=== PATIENT | female | born 1990 ===

== ENCOUNTER 2025-03-21 09:42 | Outpatient (AMB) | payer OTHER, SELFPAY ==
[2025-03-21 09:53] VITALS: BMI 62.8
--- NOTE | 2025-03-21 09:53 | A.PHYSOV_ITS ---
Vital Signs 03/21/25 09:53 Height 5 ft 11 in Weight 450 lb BMI 62.8 Intake Visit Reasons: NPV Shey Ref-back pain Intake Note: Patient is a 34 year old female coming in today for low back pain. Associate Sales Representative Required: No Allergies fluoxetine Allergy (Unknown, Verified 03/21/25 09:54) Unknown lisinopril Allergy (Unknown, Verified 03/21/25 09:54) Unknown HPI Comments Details: History of Present Illness The patient is a 34 year old individual presenting for evaluation of progressively worsening chronic low back pain. The patient describes the pain as a wringing tightness in the low back, which also involves the buttocks and is tender to the touch. The pain is exacerbated by activities such as walking long distances, side-stepping during Chandrakant, and weightlifting, specifically hip thrusts. The patient finds some relief with a heating pad and Epsom salt baths, and notes that water aerobics does not typically cause problems. The patient reports using meloxicam and methocarbamol but states they provide no significant improvement. Due to a history of a blood clot, the patient avoids ibuprofen. Past treatments include physical therapy approximately two years ago. The patient maintains an active lifestyle, exercising three times a week. A prior X- ray of the back showed some arthritis, but the patient has never had an MRI. I reviewed the referring provider's no prior to consultation. Pain Description - Onset and Character: The patient reports progressively worsening chronic pain characterized as a wringing tightness. - Location and Radiation: The pain is primarily in the lower back and radiates into the buttocks bilaterally, which are tender to the touch. The patient denies radiation down the legs. - Exacerbating Factors: Pain is worsened by prolonged walking and specific movements like side-stepping in Chandrakant and hip thrusts while weightlifting. - Relieving Factors: The patient finds relief with a heating pad, Epsom salt baths, and engaging in water aerobics. - Functional Impact: The pain limits the patient's ability to participate fully in activities like Chandrakant and weightlifting. [facility] Surgical History (Updated 03/21/25 @ 09:56 by Olga Lidia Calix MA) H/O hand surgery Social History (Updated 03/21/25 @ 09:57 by Olga Lidia Calix MA) Alcohol intake: current Alcohol intake frequency: a few times a month Patient Tobacco Use Status: Never used Tobacco Current occupational status: employed Review of Systems Narrative Review of Systems - Musculoskeletal: Reports progressively worsening chronic low back pain with a wringing tightness. Reports pain radiating to the buttocks, which are tender to the touch. - Neurological: Denies pain radiating down the legs. Physical Exam Exam Exam: Physical Exam Lumbar Spine: Examination of her lumbar spine, there is no visible swelling or deformity. She is tender to her lower lumbar facets. She is otherwise nontender. Full range of motion of the lumbar spine. She does have an increase in pain with facet loading. Special Tests: Lhermittes sign was negative Heel Toe walk is normal Left straight leg raise: Negative Right straight leg raise: Negative Special tests Adis test is negative Ganslen's test is negative SI Joint compression test negative Diego test negative Piriformis stretch is negative Lower Extremities: Full range of motion bilateral lower extremities. No calf pain or edema. Neuro: Sensation: Intact to lower extremities bilaterally Strength L2 (Psoas): 5/5 on the left and 5/5 on the right. L3 (Quads): 5/5 on the left and 5/5 on the right. L4 (Ant tibialis): 5/5 on the left and 5/5 on the right. L5 (EHL) 5/5 on the left and 5/5 on the right. S1 (Gastroc): 5/5 on the left and 5/5 on the right. DTR L4: (Patellar) Left 1 Right 1 S1: (Achilles) Left 1 Right 1 Babinski Downgoing No pathologic clonus. No involuntary movement. Vital Signs: BMI result Body Mass Index 62.8 Assessment & Plan Assessment & Plan (1) Lumbar radiculopathy: Code(s): M54.16 - Radiculopathy, lumbar region Category: Medical (2) Lumbar spondylosis: Code(s): M47.816 - Spondylosis without myelopathy or radiculopathy, lumbar region Category: Medical Plan Pain Management - Analgesia: The patient currently uses meloxicam and methocarbamol, but reports no significant improvement in symptoms. The patient avoids ibuprofen due to a history of a blood clot. - Activities of Daily Living: The patient's pain interferes with exercise, specifically limiting participation in Chandrakant and weightlifting. The patient is able to perform water aerobics without difficulty and otherwise tries to remain active. - Affect: The patient reports primarily dealing with the pain. - Adverse Effects: Not discussed. - Aberrant Drug-Related Behaviors: No aberrant behaviors were discussed or noted. Plan Patient was informed and verbally consented to the use of an ambient scribe for clinic note documentation during this visit. 1. Low Back Pain The patient's worsening chronic low back pain requires further investigation. While a prior x-ray showed some arthritis, it is insufficient for a complete diagnosis. An MRI of the lumbar spine is indicated to evaluate for disc pathology or nerve impingement. Due to insurance requirements, the patient will first complete a 5-week trial of a physician-directed home exercise program. The patient will follow up in 5 weeks, after which an MRI will be ordered. The patient is advised to continue activity modification and can continue using meloxicam and methocarbamol for symptom management. 2. Personal History Of Venous Thrombosis The patient's history of a blood clot serves as a contraindication to the use of certain NSAIDs like ibuprofen. The patient is not currently on anticoagulation. Current use of meloxicam will be continued with caution. Discussion Notes I explained to the patient that while the prior x-ray showed some arthritis, it is insufficient to fully evaluate the cause of the back pain. I recommended a lumbar MRI to get a better view of the discs and nerves but noted that insurance companies often require a period of conservative treatment first. Since the patient completed physical therapy in the past, we agreed on initiating a physician-directed home exercise program for five weeks as a formality to meet these insurance requirements. I provided the patient with exercise handouts and instructed the patient to perform them every other day. We will schedule a follow-up appointment in 6 weeks, at which point I will order the MRI. I advised the patient to continue modifying activities as needed and to continue current medications for pain. The patient understood and agreed with this plan. Patient Instructions - Perform the home exercises you were given every other day for the next 5 weeks. Do what you can, and do not push through sharp pain. - Continue to stay active but modify your activities as needed. It is okay to take breaks. Water aerobics is a good option for you. - You may continue to use your current pain medications, meloxicam and methocarbamol, as needed. - Do not take medications like ibuprofen because of your past history of a blood clot. - Please make a follow-up appointment at the front desk manager for 5 weeks from now. - We plan to order an MRI of your low back after your next visit. Coding Level of Care Code Tele New Pt Level 4 (95776) Diagnoses Lumbar radiculopathy M54.16 Lumbar spondylosis M47.816
--- OUTSIDE RECORDS SUMMARY | 2025-03-21 10:46 | XMS_ITS | Clinical Summary ---
Author Organization [facility] Address [address] [place] [address] Care Team Providers Care Cat Operator Name Role Phone Marvin Cordero MD Primary Care Provider [phone] Allergies No known active allergies Medications Medication Sig Dispensed Refills Start Date End Date Status albuterol (PROVENTIL HFA;VENTOLIN HFA) 108 (90 Base) MCG/ACT inhaler Inhale 2 puffs into the lungs daily as needed for wheezing. 0 Active losartan (COZAAR) 100 MG tablet Take 1 tablet (100 mg total) by mouth daily. 0 Active meloxicam (MOBIC) 7.5 MG tablet Take 1 tablet (7.5 mg total) by mouth daily. 0 Active aspirin 325 MG tablet Take 1 tablet (325 mg total) by mouth daily. 90 tablet 3 08/30/2023 Active Active Problems Problem Noted Date Diagnosed Date High serum vitamin B12 08/28/2022 Multiple subsegmental pulmon soo emboli without acute cor pulmonale 08/03/2019 Acute thromboembolism of deep veins of left lowe r extremity 08/03/2019 Class 3 severe obesity due t o excess calories with serious comorbidity in adult 08/03/2019 Family History Medical History Relation Name Comments Heart attack Mother Relation Name Status Comments Father Alive Mother Alive Social History Tobacco Use Types Packs/Day Years Used Date Smoking Tobacco: Never Smokeless Tobacco: Never Alcohol Use Standard Drinks/Week Comments Yes 2 (1 standard drink = 0.6 oz pur e alcohol) every other day Sex and Gender Information Value Date Recorded Sex Assigned at Not on file Gender Identity Not on file Sexual Orientation Not on file Job Start Date Occupation Industry Not on file Not on file Not on file Last Filed Vital Signs Vital Sign Reading Time Taken Comments Blood Pressure 155/86 08/30/2023 9:22 AM EDT Pulse 64 08/30/2023 9:22 AM EDT Temperature 36.5 C (97.7 F) 08/30/2023 9:22 AM EDT Respiratory Rate - - Oxygen Saturation 99% 08/30/2023 9:22 AM EDT Inhaled Oxygen Concentration - - Weight 201.4 kg (444 lb) 08/30/2023 9:22 AM EDT Height 180.3 cm (5' 11 ) 08/03/2019 9:16 AM EDT Body Mass Index 61.93 08/03/2019 9:16 AM EDT Plan of Treatment Health Maintenance Due Date Last Done Comments Hepatitis C Screening 1989 Depression Screening 2001 BMI Counseling 06/30/2007 Preventative Health Evaluation 06/30/2007 Cervical Cancer Screening (Pap Smear) 2010 COVID-19 Vaccine (2024- 6 season) 2024 03/26/2021, 06/08/2020, 05/18/2020 Influenza Vaccine (#1) 2024 01/21/2021 DTap / Tdap / Td (2 - Td or Tdap) 12/12/2025 12/13/2015 Hepatitis B Vaccines Completed 12/23/2005, 02/18/2001, 09/07/2000 Pneumococcal Vaccine Aged Out No long er eligible based on patient's age to complete this topic RSV Ped < 20 months Aged Out No longe r eligible based on patient's age to complete this topic Insurance Payer Benefit Plan / Group Subscriber ID Effective Dates Phone Address [facility] [id number] 2021-Present [address] [facility] [address] [place] [address] O Care Teams Cat Operator Relationship Specialty Start Date End Date Marvin Cordero MD PCP - General Internal Medicine 07/26/19
--- OUTSIDE RECORDS SUMMARY | 2025-03-21 10:46 | XMS_ITS | Encounter Summary ---
Author Organization [facility] Address [address] [place] [address] Care Team Providers Care Supervisor Denture Department Name Role Phone Nancy Lr MD Primary Care Prov ider Encounter Details Date Type Department Care Team (Late st Contact Info) Description 02/26/2025 Results Follow-Up Adult Medicine - [place] [address] [place] [address] Sara Guajardo PA [address] [place] [address] Social History Tobacco Use Types Packs/Day Years Used Date Smoking Tobacco: Never Smokeless Tobacco: Never Alcohol Use Standard Drinks/Week Comments Yes 2 (1 standard drink = 0.6 oz pur e alcohol) Housing Instability Answer Date Recorde d Are you worried that in the next 2 months you may not have stable housing? No 02/29/2024 Food Access & Nutrition Answer Date Rec orded Do you have access to a vari ety of food including fruits and vegetables? No 02/29/2024 Access to Healthcare Answer Date Record ed Within the last 3 months, ho w many times did you visit the emergency department for your medical care? 1 02/29/2024 Health Literacy Answer Date Recorded How often do you need to hav e someone help you when you read instructions, pamphlets, or other written material from your doctor or pharmacy? Never 02/29/2024 Caregiver: How often do you need to have someone help you when you read instructions, pamphlets, or other written material from your doctor or pharmacy? Not on file 02/29/2024 Financial Risk Answer Date Recorded How hard is it for you to pa y for the very basics like food, housing, medical care, and air conditioning / heating? Somewhat hard 02/29/2024 Transportation Answer Date Recorded Has the lack of transportati on kept you from meetings, work, or from getting things needed for daily living? No Has the lack of transportati on kept you from medical appointments or from getting medications? No 02/29/2024 Social Isolation Answer Date Recorded How often do you feel lonely or isolated from those around you? Sometimes 02/29/2024 Food Risk Answer Date Recorded Within the past 12 months we worried whether our food would run out before we got money to buy more. Sometimes true 024 Within the past 12 months th e food we bought just didn't last and we didn't have money to get more. Sometimes true 02/29/2024 Dependent Care Answer Date Recorded Do you need help finding or paying for care for your loved ones. For example, child support officer or elderly care for an older adult? No 02/29/2024 Education Answer Date Recorded Do you think completing more education or training, like finishing a GED, going to college, or learning a trade, would be helpful for you? No 02/29/2024 Employment and Income Answer Date Recor ded During the last four weeks, have you been actively looking for work? No 02/29/2024 Living Situation Answer Date Recorded What is your living situation? Unrecognized valu e 02/29/2024 Comments No Sex and Gender Information Value Date Recorded Sex Assigned at Not on file Legal Sex Female 7:26 PM EST Gender Identity Not on file Sexual Orientation Not on file documented as of this encounter Plan of Treatment Upcoming Encounters Date Type Department Care Team (Late st Contact Info) Description 04/10/2025 8:00 AM EST Consult Bariatric Surgery - [address] [place] [address] Maris Milligan, RD [address] [place] [address] 04/27/2025 8:45 AM EST Office Visit Adult Medicine - [place] [address] [place] [phone] Sara Guajardo PA [address] [place] [address] 06/22/2025 4:30 PM EST Office Visit Rheumatology - [place] [address] [place] [address] Roshan Rodriguez MD [address] [place] [address] 07/25/2025 8:15 AM EDT Office Visit Bariatric Surgery - [place] [address] [facility] [address] [place] [phone] Milli Glass PA [address] [place] [phone] documented as of this encounter Visit Diagnoses Not on filedocumented in this encounter Additional Health Concerns Assessment Noted Time PHQ-9 Depression Total Score: 11 025 6:37 AM EST documented as of this encounter Care Teams Supervisor Denture Department Relationship Specialty Start Date End Date Nancy Lr MD [address] [place] [address] PCP - General Internal Medicine 06/05/20 documented as of this encounter
--- OUTSIDE RECORDS SUMMARY | 2025-03-21 10:46 | XMS_ITS | Encounter Summary ---
Author Organization [facility] Address [address] [place] [address] Care Team Providers Care Call Person Name Role Phone Nancy Lr MD Primary Care Prov ider Encounter Details Date Type Department Care Team ([facility] Contact Info) Description 01/23/2025 Results Follow-Up Endocrinology [address] [phone] Leanna Solis MD [address] [place] [address] Social History Tobacco Use Types Packs/Day Years [...] ed Within the last 3 months, ho lucia many times did you visit the emergency [...] care for your loved ones. For example, early childhood specialist or elderly care for an older adult? [...] 8:00 AM EST Consult Bariatric Surgery - [address] [place] [address] Maris Milligan, RD [address] [place] [address] 04/27/2025 8:45 AM EST Office Visit Adult Medicine - [place] [address] [place] [phone] Sara Guajardo PA [address] [place] [address] 06/22/2025 4:30 PM EST Office Visit Rheumatology - [place] [address] [place] [address] Roshan Rodriguez MD [address] [place] [address] 07/25/2025 8:15 AM EDT Office Visit Bariatric Surgery - [place] [address] [facility] [address] [place] [phone] Milli Glass PA [address] [place] [phone] documented as of this encounter Visit Diagnoses Not on filedocumented in this encounter Additional Health Concerns Assessment Noted Time PHQ-9 Depression Total Score: 11 025 6:37 AM EST documented as of this encounter Care Teams Call Person Relationship Specialty Start Date End Date Nancy Lr MD [address] [place] [address] PCP - General Internal Medicine 06/05/20 documented as of this encounter
--- OUTSIDE RECORDS SUMMARY | 2025-03-21 10:46 | XMS_ITS | Encounter Summary ---
Author Organization [facility] Address [address] [place] [address] Care Team Providers Care Paint Line Operator Name Role Phone Nancy Lr MD Primary Care Prov ider Reason for Referral * Consultation (Routine) - Closed Specialty Diagnoses / Procedures Referred By Contact Referred To Contact Physical Medicine and Rehabilitation Diagnoses Chronic bilateral low back pain without sciatica Sara Guajardo PA [address] [place] [address] Phone: tel: fax: [facility] [address] [place] [address] [address] [place] [address] Phone: tel: fax: Referral ID Status Reason Start Date Expiration Date V isits Requested Visits Authorized [id number] Closed Specialty Services Required 02/21/2025 02/21/2026 1 1 Encounter Details Date Type Department Care Team (Late st Contact Info) Description 02/21/2025 Results Follow-Up Adult Medicine - [place] [address] [place] [address] Sara Guajardo PA [address] [place], [place] Social History Tobacco Use Types Packs/Day Years [...] for your loved ones. For example, child development teacher or elderly care for an older adult? [...] on file documented as of this encounter Progress Notes * JULIETTE Gomez - 02/21/2025 1:02 PM EST Please call patient and advise that xray of the back showed some degenerative changes but nothing acute. Given her ongoing pain I will refer her to family physiatry to have this further evaluated. Give her number [phone] documented in this encounter Plan of Treatment Upcoming Encounters Date Type Department Care Team (Late st Contact Info) Description 04/10/2025 8:00 AM EST Consult Bariatric Surgery [address] [address] Mrais Milligan, INDY [address] [place] [phone] 04/27/2025 8:45 AM EST Office Visit Adult Medicine - [place] [address] [place] [phone] Sara Guajardo PA [address] [place] [address] 06/22/2025 4:30 PM EST Office Visit Rheumatology - [place] [address] [place] [phone] Roshan Rodriguez MD [address] [place] [address] [place] [phone] 07/25/2025 8:15 AM EDT Office Visit Bariatric Surgery [address] [address] Milli Glass PA [address] [place] [address] Scheduled Referrals Name Type Priority Associated Diagnoses Order Schedule Ambulatory referral to Physical Medicine Rehab Outpatient Referral Routine Chronic bilateral low back pain without sciatica 1 Occurrences starting 02/21/2025 until 02/21/2026 documented as of this encounter Visit Diagnoses Diagnosis Chronic bilateral low back pain without sciatica- Primary documented in this encounter Additional Health Concerns Assessment Noted Time PHQ-9 Depression Total Score: 11 025 6:37 AM EST documented as of this encounter Care Teams Paint Line Operator Relationship Specialty Start Date End Date Nancy Lr MD [address] [place] [address] PCP - General Internal Medicine 06/05/20 documented as of this encounter
--- OUTSIDE RECORDS SUMMARY | 2025-03-21 10:46 | XMS_ITS ---
Author Name [facility] Organization Unknown History of Medication Use Medication Directions Dispensed Refills Start Date End Date Stat pregabalin (Lyrica) 75 mg capsule Take 1 capsule (75 mg total) by mouth 3 (three) times a day. Max Daily Amount: 225 mg 08/08/2024 active meloxicam (MOBIC) 7.5 mg tablet TAKE 1 TABLET BY MOUTH EVERY DAY 07/20/2024 active DULoxetine (Cymbalta) [address] capsule Take 1 capsule (30 mg total) by mouth 3 (three) times a day. Do not crush or chew. 06/07/2024 active pregabalin (Lyrica) 75 mg capsule Take 1 capsule (75 mg total) by mouth 1 (one) time each day after dinner for 15 days, THEN 2 capsules (150 mg total) 1 (one) time each day after dinner for 15 days, THEN 3 capsules (225 mg total) 1 (one) time each day after dinner for 15 days. Max Daily Amount: 225 mg. 06/07/2024 active tiZANidine (Zanaflex) 6 mg capsule Take 1 capsule (6 mg total) by mouth at bedtime. 06/07/2024 active semaglutide (Wegovy) 0.25 mg/0.5 mL injection pen Inject 0.25 mg under the skin every 7 (seven) days. Start with 0.25mg weekly for 4 weeks then increase to 0.5mg weekly 05/12/2024 active cyclobenzaprine (FLEXERIL) 5 mg tablet Take 2 tablets (10 mg total) by mouth at bedtime. 02/21/2024 08/15/2024 active DULoxetine (Cymbalta) [address] capsule Take 1 capsule (30 mg total) by mouth 1 (one) time each day in the morning for 10 days, THEN 1 capsule (30 mg total) 2 (two) times a day for 10 days, THEN 1 capsule (30 mg total) 3 (three) times a day. Do not crush or chew.. 02/21/2024 active CBD Oil 01/21/2024 active L-Lysine 1000mg Tablet 01/21/2024 active Losartan Potassium 100mg Tablet 01/21/2024 active Meloxicam 7.5mg Tablet 01/21/2024 active losartan (COZAAR) 100 mg tablet Take 1 tablet (100 mg total) by mouth 1 (one) time each day. 08/09/2023 active meloxicam (MOBIC) 7.5 mg tablet Take 1 Tablet by mouth daily for 360 days. 07/07/2023 active diclofenac (VOLTAREN) 1 % topical gel Apply 2 g topically 4 times daily. 05/07/2023 06/07/2024 aborted albuterol HFA (PROAIR HFA ; PROVENTIL HFA ; VENTOLIN HFA) 90 mcg/actuation inhaler Inhale 2 puffs into the lungs daily as needed for wheezing. active aspirin 325 mg tablet Take 1 tablet (325 mg total) by mouth 1 (one) time each day. active benazepriL (LOTENSIN) 10 mg tablet Take 2 tablets (20 mg total) by mouth 1 (one) time each day. active buPROPion XL (WELLBUTRIN XL) 150 mg 24 hr tablet Take 1 tablet (150 mg total) by mouth 1 (one) time each day. active FLUoxetine (PROzac) 20 mg capsule Take 1 capsule (20 mg total) by mouth 1 (one) time each day. active methocarbamoL (ROBAXIN) 750 mg tablet Take 1 tablet (750 mg total) by mouth 4 (four) times a day. active TURMERIC ORAL Take by mouth. act rashawn Allergies Allergen Reaction Severity Comment Documented Date Source Statu s FLUOXETINE OTHER Alterted mental health 10/16/2022 [facility] active LISINOPRIL Muscle cramps 05/19/2021 [facility] a ctive IBUPROFEN ENS_PODCRCT Problems Problem Status Onset Date Problem Type Date of Resolution Source Class 3 severe obesity due to excess calories with serious comorbidity in adult active 2023-06-10 ProblemAct [facility] Asthma active 2024-01-20 ProblemAct [facility] Prediabetes active 2021-11-17 ProblemAct [facility] Acute thromboembolism of deep veins of left lower extremity ([facility] V24, [facility] V28) active 2019-08-03 ProblemAct [facility] Fibromyalgia active 2024-05-12 ProblemAct [facility] DVT femoral (deep venous thrombosis) with thrombophlebitis, left ([facility] V24, [facility] V28) active 2019-06-13 ProblemAct [facility] Osteoarthritis active 2024-05-12 ProblemAct [facility] Adjustment disorder with anxious mood active 2021-05-15 ProblemAct [facility] Insomnia active 2022-12-11 ProblemAct [facility] Multiple subsegmental pulmonary emboli without acute cor pulmonale ([facility] V24, [facility] V28) active 2019-08-03 ProblemAct [facility] Morbid obesity ([facility] V24, [facility] V28) active 2016-12-01 ProblemAct [facility] High serum vitamin B12 active 2022-08-28 ProblemAct [facility] Essential hypertension active 2021-05-15 ProblemAct [facility] Snoring active 2020-09-20 ProblemAct [facility] Congenital pes planus, right foot - Flat Foot active 2024-01-21 EncounterDiagnosisAct ENS_PO DCRCT Posterior tibial tendinitis, left leg active 2024-01-21 EncounterDiagnosisAct ENS_PODCRCT Tinea pedis active 2024-01-21 ProblemAct E[facility]_PO DCRCT Equinus - Short Achilles tendon, RIGHT active 2024-01-21 EncounterDiagnosisAct ENS_PO DCRCT Posterior tibial tendinitis, right leg active 2024-01-21 ProblemAct ENS_PODCRCT Tinea unguium, onychomycosis active 2024-01-21 EncounterDiagnosisAct ENS_P ODCRCT Contracture of tendo achilles active 2024-01-21 ProblemAct ENS_PODCRCT Congenital pes planus, left foot -Flat Foot active 2024-01-21 EncounterDiagnosisAct ENS_PO DCRCT Immunizations Vaccine Date Source Lot Number Status Pneumococcal conjugate 20 va lent (Prevnar 20, PCV 20) 2mo and older [id number] comple lyle Influenza Quadravalent, MDCK , 0.5ml, preservative free (Flucelvax) 6mo and older 01/21/2021 [facility] [id number] completed Pfizer SARS-CoV-2 COVID-19, mRNA, LNP-S, preservative free 06/08/2020 [facility] [id number] completed Pfizer SARS-CoV-2 COVID-19, mRNA, LNP-S, preservative free 05/18/2020 [facility] [id number] completed Tdap Tetanus diptheria acell ular pertussis (Boostrix; Adacel) 7yo and older 12/13/2015 [facility] [id number] completed Varicella live (Varivax) 12mo and older 10/29/2008 [facility] completed Meningococcal MCV4P 03/08/2007 [facility]FR[facility]UELANGEL compl eted Hepatitis B Pediatric (Enger ix B; Recombivax HB) to less than 20 yo 12/23/2005 [facility] completed Hepatitis B Pediatric (Enger ix B; Recombivax HB) to less than 20 yo 02/18/2001 [facility] completed Hepatitis B Pediatric (Enger ix B; Recombivax HB) to less than 20 yo 09/07/2000 [facility] completed Td Tetanus diptheria (Tdvax) 7yo and older 06/23/1999 [facility]_T HSFRAN completed MMR, measles mumps and rubel la Live (Priorix; M-M-R II) 12mo and older 07/15/1994 [facility] completed MMR, measles mumps and rubel la Live (Priorix; M-M-R II) 12mo and older 10/05/1990 [facility] completed Encounters Encounter Type Encounter Reason Primary Diagnosis Location Date Ambulatory [facility] 08/08/2024 Ambulatory [facility] 06/07/2024 Ambulatory Rheumatism, unspecified Rheumatism, unspecified [facility] 02/21/2024 Ambulatory [facility] 12/02/2023 Care Team Organization Name Specialty Phone Email Start Date End Da te THoNE [facility] 02[facility]22[facility]2024 [facility] [place]/[facility]/2024 [facility] 01/21/2024 [facility] Kamla Buckner MD Primary Care 01/21/2024 [facility] 12/02/2023
--- OUTSIDE RECORDS SUMMARY | 2025-03-21 10:46 | XMS_ITS | Encounter Summary ---
Author Organization [facility] Address [address] [place] [address] Care Team Providers Care Product Consultant Name Role Phone Nancy Lr MD Primary Care Prov ider Encounter Details Date Type Department Care Team (Late st Contact Info) Description 03/20/2025 Results Follow-Up Endocrinology - [place] [address] [place] [phone] Saroj Grewal MD [address] [place] [address] Social History Tobacco Use Types Packs/Day Years [...] your loved ones. For example, child support specialist or elderly care for an older [...] as of this encounter Progress Notes * Milli Shelley - 03/20/2025 10:58 AM EST Tried calling twice today. Line busy, will try again tomorrow. * Saroj Grewal MD - 03/20/2025 8:55 AM EST Please schedule patient for a follow-up visit with me in 6 to 8 weeks Thanks documented in this encounter Plan of Treatment Upcoming Encounters Date Type Department Care Team ([facility] st Contact Info) Description 04/10/2025 8:00 AM EST Consult Bariatric Surgery - [address] [phone] Maris Milligan, INDY [address] [place] [phone] 04/27/2025 8:45 AM EST Office Visit Adult Medicine - [address] [phone] Sara Guajardo PA [address] [place] [address] 06/22/2025 4:30 PM EST Office Visit Rheumatology [facility] [address] [place] [phone] Roshan Rodriguez MD [address] [place] [address] [place] [phone] 07/25/2025 8:15 AM EDT Office Visit Bariatric Surgery - [address] [phone] Milli Glass PA [address] [place] [phone] documented as of this encounter Visit Diagnoses Not on filedocumented in this encounter Additional Health Concerns Assessment Noted Time PHQ-9 Depression Total Score: 11 025 6:37 AM EST documented as of this encounter Care Teams Product Consultant Relationship Specialty Start Date End Date Nancy Lr MD [address] [place], [place] PCP - General Internal Medicine 06/05/20 documented as of this encounter
--- OUTSIDE RECORDS SUMMARY | 2025-03-21 10:46 | XMS_ITS | Clinical Summary ---
Author Organization [employer] [facility] Building Address [address] [place] [address] Phone Care Team Providers Care Sanitarian Name Role Phone Nancy Lr MD Primary Care Prov ider Allergies Active Allergy Reactions Criticality Noted Date Comments Fluoxetine Other 10/16/2022 Alterted mental health Lisinopril 05/19/2021 Muscle cramps Medications multivitamin,th er and minerals (VITAMINS AND MINERALS ORAL) Take by mouth daily. Active TURMERIC ORAL Take by mouth. Active albuterol HFA (PROAIR HFA ; PROVENTIL HFA ; VENTOLIN HFA) 90 mcg/actuation inhaler INHALE 2 PUFFS INTO THE LUNGS EVERY 4 HOURS NEEDED FOR COUGH OR WHEEZING. 8.5 g 5 Active meloxicam (MOBIC) 7.5 mg tabletIndicatio ns:Pain in right knee TAKE 1 TABLET BY MOUTH EVERY DAY 90 tablet 5 Active methocarbamoL (ROBAXIN) 750 mg tablet Take 1 tablet (750 mg total) by mouth 2 (two) times a day. 60 each 3 5 08/07/19 26 Active losartan (COZAAR) 100 mg tablet TAKE 1 TABLET BY MOUTH 1 TIME EACH DAY. 90 tablet 1 5 Active semaglutide (Wegovy) 1.7 mg/0.75 mL injection pen Inject 1.7 mg under the skin every 7 (seven) days. 3 mL 2 5 Active semaglutide (Wegovy) 1 mg/0.5 mL injection penIndications: Class 3 severe obesity due to excess calories with serious comorbidity and body mass index (BMI) of 60.0 to 69.9 in adult ([facility] [place], [facility] V28) Inject 1 mg under the skin every 7 (seven) days. 4 mL 5 02/21/20 25 Discontinued Active Problems Problem Noted Date Diagnosed Date Osteoarthritis 05/12/2024 Fibromyalgia 05/12/2024 Asthma 01/20/2024 Class 3 severe obesity due t o excess calories with serious comorbidity in adult ([facility] V[facility]) 06/10/2023 Insomnia 12/11/2022 High serum vitamin B12 08/28/2022 Prediabetes 11/17/2021 Adjustment disorder with anxious mood 05/15/2021 Essential hypertension 05/15/2021 Snoring 09/20/2020 Overview (01/20/2024): 08/2020 Home Sleep Study did not reveal sleep apnea or nocturnal hypoxia. Acute thromboembolism of mikel p veins of left lower extremity ([facility], [facility] V28) 08/03/2019 Multiple subsegmental pulmon soo emboli without acute cor pulmonale ([facility], [facility] V28) 08/03/2019 DVT femoral (deep venous thr ombosis) with thrombophlebitis, left ([facility], [facility] V28) 06/13/2019 Morbid obesity ([facility], [facility] V28) 2016 Encounters Date Type Department Care Team Description 03/20/2025 Results Follow-Up Endocrinology - [address] [phone] Saroj Grewal MD 03/14/2025 8:55 AM EST Lab Draw Station - [address] [place] [phone] Elevation of adrenocorticotropic hormone (ACTH) 03/13/2025 Telephone Endocrinology - [address] [phone] Saroj Grewal MD 03/09/2025 7:55 AM EST Lab Draw Station - [address] [phone] High serum adrenocorticotropic hormone (ACTH) 02/26/2025 8:20 AM EST Lab Draw Station - [address] [phone] Prediabetes; Morbid obesity (CMS/HCC V24, CMS/HCC V28) 02/26/2025 Results Follow-Up Endocrinology - [address] [phone] Leanna Solis MD 02/26/2025 Results Follow-Up Adult Medicine - [address] [phone] Sara Guajardo PA 02/21/2025 Results Follow-Up Adult Medicine - [address] [phone] Sara Guajardo PA 02/20/2025 3:17 PM EST - 02/20/2025 11:59 PM EST [facility] Xray [address] [place] [phone] Chronic bilateral low back pain without sciatica Discharge Disposition: Home or Self Care 02/20/2025 2:45 PM EST Office Visit Bariatric Surgery [facility] [address] [place] [phone] Milli Glass PA Class 3 severe obesity due to excess calories with serious comorbidity and body mass index (BMI) of 60.0 to 69.9 in adult (CMS/HCC V24, CMS/HCC V28) (Primary Dx) 02/07/2025 10:30 AM EDT Office Visit Adult [facility] [address] [place] [phone] Sara Guajardo, PA Morbid obesity (CMS/HCC V24, CMS/HCC V28) (Primary Dx); Essential hypertension; Adjustment disorder with anxious mood; Fibromyalgia; Chronic bilateral low back pain without sciatica 01/24/2025 2:30 PM EDT Consult Bariatric Surgery - [place] [address] [place] [phone] Milli Glass PA Class 3 severe obesity due to excess calories with serious comorbidity and body mass index (BMI) of 60.0 to 69.9 in adult (CMS/HCC V24, CMS/HCC V28) (Primary Dx); Essential hypertension; Prediabetes 01/23/2025 8:30 AM EDT Office Visit Adult Medicine [address] [phone] Sara Guajardo PA Morbid obesity (CMS/HCC V24, [facility] V28) (Primary Dx); Prediabetes; Essential hypertension; Adjustment disorder with anxious mood; Fibromyalgia 01/23/2025 Results Follow-Up Endocrinology - [address] [phone] Leanna Solis MD 01/03/2025 2:30 PM EDT Telemedicine Endocrinology - [address] [phone] Leanna Solis MD Morbid obesity ([facility]/HCC V24, [facility] V28) (Primary Dx) from Last 3 Months Immunizations Immunization Administration Dates Next Due Hepatitis B Pediatric (Enger ix B; Recombivax HB) to less than 20 yo 12/23/2005,02/18/2001,09/07/2000 Influenza Quadravalent, MDCK , 0.5ml, preservative free (Flucelvax) 6mo and older 01/21/2021 MMR, measles mumps and rubel la Live (Priorix; M-M-R II) 12mo and older 07/15/1994,10/05/1990 Meningococcal MCV4P 03/08/2007 Pfizer SARS-CoV-2 COVID-19, mRNA, LNP-S, preservative free 06/08/2020,05/18/2020 Pneumococcal conjugate 20 va lent (Prevnar 20, PCV 20) 2mo and older 11/10/2023 Td Tetanus diptheria (Tdvax) 7yo and older 06/22 Tdap Tetanus diptheria acell ular pertussis (Boostrix; Adacel) 7yo and older 12/13/2015 Varicella live (Varivax) 12mo and older 10/30/19 09 Surgical History Surgery Date Site/Laterality Comments HAND SURGERY PROCEDURE: HISTORICAL HAND SURGERY; COMMENT: left hand; 4 years old, pnemonia post-op OTHER SURGICAL HISTORY 06/03/2020 Right PROCEDURE: SKIN TISSUE BIOPSY [facility] PATHOLOGY EXAM; COMMENT: excision of right buttock sebaceous cyst by Dr. Emeterio Falcon Medical History Medical History Date Comments Asthma DX:Asthma Depression with anxiety DX:Depre ssion with anxiety PTSD (post-traumatic stress disorder) DX:PTSD (post-traumatic stress disorder); COMMENT: boarderline personality disorder Morbid obesity (CMS/HCC V24, CMS/HCC V28) DX:Morbid obesity (HCC) Family History Medical History Relation Name Comments Hypertension Father Stroke Maternal Grandmother Heart attack Mother pacemaker, quit tobacco, HTN, depression Other: skin cancer Paternal Grandmother d eceased Depression Sister 1 Breast cancer Neg Hx Colon cancer Neg Hx Ovarian cancer Neg Hx Prostate cancer Neg Hx Uterine cancer Neg Hx Relation Name Status Comments Brother 1 Alive 20; healthy Brother 2 Alive 34; healthy Father Alive hypertension Maternal Grandfather unknown Maternal Grandmother Alive stroke Mother Alive [facility] in 2012; hyp ertension Paternal Grandfather unknown Paternal Grandmother of skin cancer Sister 1 Sister 2 Alive 27; alcoholism Social History Tobacco Use Types Packs/Day Years Used Date Smoking Tobacco: Never Smokeless Tobacco: Never Tobacco Cessation:Counseling Given: No Alcohol Use Standard Drinks/Week Comments Yes 2 [...] Record ed Within the last 3 months, dav myers many times did you visit the emergency [...] care for your loved ones. For example, children's service worker or elderly care for an older adult? [...] on file Sexual Orientation Not on file Obstetrics History Last Filed Vital Signs Vital Sign Reading Time Taken Comments Blood Pressure 155/110 02/20/2025 2:43 PM EST Pulse 79 02/20/2025 2:43 PM EST Temperature 36.5 C (97.7 F) 02/07/2025 10:40 AM EDT Respiratory Rate 18 01/23/2025 8:13 AM EDT Oxygen Saturation 98% 06/07/2024 3:24 PM EST Inhaled Oxygen Concentration - - Weight 224 kg (494 lb) 02/20/2025 2:43 PM EST Height 185.4 cm (6' 1 ) 02/20/2025 2:43 PM EST Body Mass Index 65.18 02/20/2025 2:43 PM EST Plan of Treatment Upcoming Encounters Date Type Department Care Team (Late st Contact Info) Description 04/10/2025 8:00 AM EST Consult Bariatric Surgery - [place] [address] [phone] Maris Milligan, RD [address] [place] [phone] 04/27/2025 8:45 AM EST Office Visit Adult Medicine - [place] [address] [place] [phone] Sara Guajardo PA [address] [place] [address] 06/22/2025 4:30 PM EST Office Visit Rheumatology - [place] [address] [place] [phone] Roshan Rodriguez MD [address] [place] [address] [place] [phone] 07/25/2025 8:15 AM EDT Office Visit Bariatric Surgery - [place] [address] [phone] Milli Glass PA [address] [place] [phone] Health Maintenance Due Date Last Done Comments HPV Vaccines (1 - 3-dose SCDM series) 2016 Cervical Cancer Screening: Pap Smear 07/17/2023 07/16/2020 Social Influencers of Health Screening 02/28/2025 02/29/2024 DTaP,Tdap,and Td Vaccines (3 - Td or Tdap) 12/12/2025 12/13/2015, 06/23/1999 Hypertension/CHF/CAD Annual BMP Blood Test 02/26/2026 02/26/2025, 08/11/2024, 02/03/2024, Additional history exists Cholesterol Screening (Lipid Panel) 08/11/2029 08/11/2024, 11/14/2021 RSV Immunization Adult Patients (1 - 1-dose 75+ series) 2064 MMR Vaccines Completed 07/15/1994, 10/05/1990 Hepatitis B Vaccines Completed 12/23/2005, 02/18/2001, 09/07/2000 Meningococcal ACWY Vaccine Completed 03/08/2007 Varicella Vaccines Aged Out 10/29/2008 No longer eligible based on patient's age to complete this topic HIV Screening Completed 07/16/2020 Hepatitis C Screening Completed 07/16/2020 Influenza Vaccine Discontinued 01/21/2021 COVID-19 Vaccine Discontinued 03/26/2021, , 05/18/2020 Pneumococcal Vaccine: Pediatrics (0 to 5 Years) and At-Risk Patients (6 to 49 Years) Completed 11/10/2023 Depression Screening Completed 05/12/2024 HIB Vaccines Aged Out No longer eligi ble based on patient's age to complete this topic Hepatitis A Vaccines Aged Out No long er eligible based on patient's age to complete this topic IPV Vaccines Aged Out No longer eligi ble based on patient's age to complete this topic Meningococcal B Vaccine Aged Out No l onger eligible based on patient's age to complete this topic RSV Immunization Patients Under 20 months Aged Out No longer eligible based on patient's age to complete this topic Procedures Procedure Name Priority Date/Time Associated Diagnosis Comments DEHYDROEPIANDROSTERONE SULFATE Routine 03/14/2025 9:25 AM EST Elevation of adrenocorticotropic hormone (ACTH) CORTISOL Routine 03/14/2025 9:25 AM EST Elevation of adrenocorticotropic hormone (ACTH) ACTH Routine 03/14/2025 9:25 AM EST Elevation of adrenocorticotropic hormone (ACTH) ESTRADIOL Routine 03/14/2025 9:25 AM EST Elevation of adrenocorticotropic hormone (ACTH) FOLLICLE STIMULATING HORMONE Routine 03/14/2025 9:25 AM EST Elevation of adrenocorticotropic hormone (ACTH) LUTEINIZING HORMONE Routine 03/14/2025 9:25 AM EST Elevation of adrenocorticotropic hormone (ACTH) INSULIN-LIKE GROWTH FACTOR Routine 03/14 9:25 AM EST Elevation of adrenocorticotropic hormone (ACTH) PROLACTIN Routine 03/14/2025 9:25 AM EST Elevation of adrenocorticotropic hormone (ACTH) CORTISOL Routine 03/09/2025 8:02 AM EST High serum adrenocorticotropic hormone (ACTH) ACTH Routine 03/09/2025 8:02 AM EST High serum adrenocorticotropic hormone (ACTH) CORTISOL Routine 02/26/2025 8:20 AM EST Morbid obesity (CMS/HCC V24, CMS/HCC V28) ACTH Routine 02/26/2025 8:20 AM EST Morbid obesity (CMS/HCC V24, CMS/HCC V28) COMPREHENSIVE METABOLIC PANEL Routine 02/26/2025 8:20 AM EST Morbid obesity (CMS/HCC V24, CMS/HCC V28) HEMOGLOBIN A1C Routine 02/26/2025 8:20 AM EST Prediabetes XR LUMBAR SPINE 4+ VIEWS Routine 025 3:34 PM EST Chronic bilateral low back pain without sciatica THYROXINE FREE Routine 01/16/2025 8:55 AM EDT Morbid obesity (CMS/HCC V24, CMS/HCC V28) THYROID STIMULATING HORMONE Routine 01/16/2025 8:55 AM EDT Morbid obesity (CMS/HCC V24, CMS/HCC V28) CORTISOL Routine 01/16/2025 8:55 AM EDT Morbid obesity (CMS/HCC V24, CMS/HCC V28) FOLLICLE STIMULATING HORMONE Routine 01/16/2025 8:55 AM EDT Morbid obesity (CMS/HCC V24, CMS/HCC V28) LUTEINIZING HORMONE Routine 01/16/2025 8:55 AM EDT Morbid obesity (CMS/HCC V24, CMS/HCC V28) LIPID PANEL WITH REFLEX TO DIRECT LDL Routine 08/11/2024 9:14 AM EDT Screening for ischemic heart disease HEPATITIS C SCREENING Routine 07/16/2020 HIV SCREENING Routine 07/16/2020 PAP SMEAR Routine 07/16/2020 from Last 3 Months or Most Recently Relevant to Health Maintenance Results * Prolactin (03/14/2025 9:25 AM EST) Pathologist [facility] Prolactin 29.50 See Comment ng/mL 03/14/2025 1:[address] [facility] Blood Venous blood specimen / Unknown Venipuncture / Unknown 03/14/2025 9:25 AM EST 03/14/2025 12:[address] [facility] - 03/14/2025 1:56 PM EST Prolactin Female Reference Ranges (ng/mL): Non: 2.8 - 29.2 : 9.7 - >200.0 Postmenopausal: 1.8 - 20.3 us Saroj Grewal MD LAB BLOOD ORDERABLES Final Result [facility] [address] [place] [address], * Insulin-like growth factor (03/14/2025 9:25 AM EST) Insulin-like Growth Factor 1 139 84 - 281 ng/mL 03/19/2025 11:50 AM EST [facility] Comment: Test performed at [facility], [address] , [place] [address] Silvana Bajwa MD, PhD - Steam Pan Sponger Blood Venous blood specimen / Unknown Venipuncture / Unknown 03/14/2025 9:25 AM EST 03/14/2025 10:42 AM EST Saroj Grewal MD LAB BLOOD ORDERABLES Final Result [facility] [address] [place] [address] * (ABNORMAL) Dehydroepiandrosterone Sulfate (03/14/2025 9:25 AM EST) DHEA Sulfate 36.4(L) 40.2 - 300.6 mcg/dL 03/14/2025 1:[address] [facility] Blood Venous blood specimen / Unknown Venipuncture / Unknown 03/14/2025 9:25 AM EST 03/14/2025 12:15 PM EST Saroj Grewal MD LAB BLOOD ORDERABLES Final Result [facility] [address] [place] [address], * Estradiol (03/14/2025 9:25 AM EST) Estradiol 49 See below pcg/mL 03/14/2025 1:[address] [facility] Blood Venous blood specimen / Unknown Venipuncture / Unknown 03/14/2025 9:25 AM EST 03/14/2025 12:[address] [facility] - 03/14/2025 1:56 PM EST Estradiol Female Reference Ranges (pg/mL): Menstruating: Follicular phase: 19.5 - 144.2 Mid-cycle phase: 63.9 - 356.7 Luteal phase: 55.8 - 214.2 Post menopausal: Untreated: ND - 32.2 Fulvestrant has been shown to cross-react with the estradiol assay and cause falsely elevated results. For patients being treated with fulvestrant, Estradiol ultrasensitive should be ordered. This test is performed by LC/MS and is not expected to show cross reactivity to fulvestrant. Saroj Grewal MD LAB BLOOD ORDERABLES Final Result Performing Organization Address City/[facility] Co de Phone Number [facility] [address] [place] [address], * (ABNORMAL) ACTH (03/14/2025 9:25 AM EST) Only the most recent of3 resultswithin the time period is included. Adrenocorticotropic Hormone (ACTH) 47(H) <=46 pg/mL 03/19/2025 8:05 PM EST [facility] Comment: Test performed at [facility], [address] , [place] [address] Silvana Bajwa MD, PhD - Steam Pan Sponger Blood Venous blood specimen / Unknown Venipuncture / Unknown 03/14/2025 9:25 AM EST 03/14/2025 10:43 AM EST Saroj Grewal MD LAB BLOOD ORDERABLES Final Result [facility] [address] [place] [address] * Luteinizing hormone (03/14/2025 9:25 AM EST) Only the most recent of2 resultswithin the time period is included. Luteinizing Hormone 4.7 See Comment mIU/mL 03/14/2025 1:[address] [facility] Blood Venous blood specimen / Unknown Venipuncture / Unknown 03/14/2025 9:25 AM EST 03/14/2025 12:15 PM EST [facility] - 03/14/2025 1:56 PM EST LH Female Reference Ranges (mIU/mL): Menstruating: Follicular phase: 1.9 - 12.5 Mid-cycle phase: 8.7 - 76.3 Luteal phase 0.5 - 16.9 Post-menopausal: 5.0 - 55.2 : < 0.1 - 1.5 Saroj Grewal MD LAB BLOOD ORDERABLES Final Result [facility] [address] [place] [address], [place] [phone] * Follicle stimulating hormone (03/14/2025 9:25 AM EST) Only the most recent of2 resultswithin the time period is included. Follicle Stimulating Hormone 7.7 See Comment mIU/mL 03/14/2025 1:[address] [facility] Blood Venous blood specimen / Unknown Venipuncture / Unknown 03/14/2025 9:25 AM EST 03/14/2025 12:15 PM EST [facility] - 03/14/2025 1:54 PM EST [facility] Female Reference Ranges (mIU/mL): Menstruating: Follicular phase: 2.5 - 10.2 Mid-cycle phase: 3.4 - 33.4 Luteal phase: 1.5 - 9.1 Post-menopausal: 23.0 - 116.3 : < 0.3 Saroj Grewal MD LAB BLOOD ORDERABLES Final Result [facility] [address] [place] [address], [place] [phone] * Cortisol (03/14/2025 9:25 AM EST) Only the most recent of4 resultswithin the time period is included. Cortisol 12.5 mcg/dL 03/14/2025 12:[address] [facility] Blood Venous blood specimen / Unknown Venipuncture / Unknown 03/14/2025 9:25 AM EST 03/14/2025 12:[address] [facility] - 03/14/2025 12:15 PM EST CORTISOL REFERENCE RANGE 8 AM SPEC: 5.0-23.0 mcg/dL 4 PM SPEC: 3.0-16.0 mcg/dL 8 PM SPEC: <5.0 mcg/dL us Saroj Grewal MD LAB BLOOD ORDERABLES Final Result [facility] [address] [place] [address], [place] [phone] * Hemoglobin A1c (02/26/2025 8:20 AM EST) [facility] Hemoglobin A1C 5.6 <6.5 % LAB CHEMISTRY METHOD 02/26/2025 11:[address] [facility] Mean Bld Glu Estim. 114 mg/dL LAB CHEMISTRY METHOD 02/26/2025 11:[address] [facility] Blood Venous blood specimen / Unknown Venipuncture / Unknown 02/26/2025 8:20 AM EST 02/26/2025 8:33 AM EST us Sara SEGOVIA LAB BLOOD ORDERABLES Final Result [facility] [address] [place] [address], [place] [phone] * Comprehensive metabolic panel (02/26/2025 8:20 AM EST) [facility] Sodium 140 133 - 145 mmol/L LAB CHEMISTRY METHOD 02/26/2025 9:[address] [facility] Potassium 4.2 3.5 - 5.5 mmol/L LAB CHEMISTRY METHOD 02/26/2025 9:18 AM [facility] Chloride 107 96 - 110 mmol/L LAB CHEMISTRY METHOD 02/26/2025 9:18 AM [facility] CO2 26 21 - 32 mmol/L LAB CHEMISTRY METHOD 02/26/2025 9:18 AM [facility] Anion Gap 7 3 - 11 LAB CHEMISTRY METHOD 02/26/2025 9:18 AM [facility] Glucose 93 70 - 100 mg/dL LAB CHEMISTRY METHOD 02/26/2025 9:18 AM [facility] BUN 12 5 - 25 mg/dL LAB CHEMISTRY METHOD 02/26/2025 9:18 AM [facility] Creatinine 0.84 0.50 - 1.10 mg/dL LAB CHEMISTRY METHOD 02/26/2025 9:18 AM [facility] eGFR 93 >=60 mL/min/1. 73m2 LAB CHEMISTRY METHOD 02/26/2025 9:18 AM [facility] Comment:Calculation based on the Chronic Kidney Disease Epidemiology Collaboration (CKD-EPI) equation refit without adjustment for race. BUN/Creatinine Ratio 14.3 LAB CHEMISTRY METHOD 02/26/2025 9:18 AM [facility] Calcium 8.6 8.5 - 10.5 mg/dL LAB CHEMISTRY METHOD 02/26/2025 9:18 AM [facility] AST (SGOT) 20 10 - 42 unit/L LAB CHEMISTRY METHOD 02/26/2025 9:18 AM [facility] ALT (SGPT) 26 10 - 60 unit/L LAB CHEMISTRY METHOD 02/26/2025 9:18 AM [facility] Alkaline Phosphatase 101 42 - 121 unit/L LAB CHEMISTRY METHOD 02/26/2025 9:18 AM [facility] Total Protein 6.9 6.0 - 8.0 g/dL LAB CHEMISTRY METHOD 02/26/2025 9:[address] [facility] Albumin 3.2 3.2 - 5.0 g/dL LAB CHEMISTRY METHOD 02/26/2025 9:[address] [facility] Total Bilirubin 0.2 0.0 - 1.4 mg/dL LAB CHEMISTRY METHOD 02/26/2025 9:[address] [facility] Blood Venous blood specimen / Unknown Venipuncture / Unknown 02/26/2025 8:20 AM EST 02/26/2025 8:33 AM EST us Sara SEGOVIA LAB BLOOD ORDERABLES Final Result [facility]) [facility] [address] [place] [address], [place] [phone] * XR Lumbar Spine 4+ Views (02/20/2025 3:34 PM EST) Anatomical Region Laterality Modality Spine, L-spine Radiographic Adamaris ging 02/21/2025 12:1 2 PM EST Impressions 02/21/2025 12:16 PM EST Suspect a transitional vertebra. There is degenerative change involving the facets at the lumbosacral junction. -------- FINAL REPORT -------- Dictated By: Paul Singh Dictated Date: 02/21/2025 12:12 ET Assigned Physician: Paul Singh Reviewed and Electronically Signed By: Paul Singh Signed Date: 02/21/2025 12:16 ET Workstation ID: [id number] Transcribed By: Self Edit Transcribed Date: 02/21/2025 12:12 ET Narrative 02/21/2025 12:16 PM EST EXAMINATION: LUMBAR SPINE CLINICAL INFORMATION: Low back pain COMPARISON: None. TECHNIQUE: 3 views lumbar spine FINDINGS: There is a transitional vertebra. The lowest disc may be S1/S2. No acute fracture or subluxation. No significant volume loss or definite focal abnormality. There is facet disease at the lumbosacral junction. No significant volume loss or definite focal abnormality. There is facet disease at the lumbosacral junction. There may be minimal narrowing of the lowest disc. No suspicious paraspinal abnormality Procedure Note Paul Singh MD - 02/21/2025 EXAMINATION: LUMBAR SPINE CLINICAL INFORMATION: Low back pain COMPARISON: None. TECHNIQUE: 3 views lumbar spine FINDINGS: There is a transitional vertebra. The lowest disc may be S1/S2. No acute fracture or subluxation. No significant volume loss or definite focal abnormality. There is facetdisease at the lumbosacral junction. No significant volume loss or definite focal abnormality. There is facetdisease at the lumbosacral junction. There may be minimal narrowing of the lowest disc. No suspicious paraspinal abnormality IMPRESSION: Suspect a transitional vertebra. There is degenerative change involvingthe facets at the lumbosacral junction. -------- FINAL REPORT -------- Dictated By: Paul Singh Dictated Date: 02/21/2025 12:12 ET Assigned Physician: Paul Singh Reviewed and Electronically Signed By: Paul Singh Signed Date: 02/21/2025 12:16 ET Workstation ID: [id number] Transcribed By: Self Edit Transcribed Date: 02/21/2025 12:12 ET Sara SEGOVIA IMG XR PROCEDURES Final Re sult * Thyroid stimulating hormone (01/16/2025 8:55 AM EDT) TSH 1.53 0.40 - 4.00 mcIU/mL LAB CHEMISTRY METHOD 01/16/2025 2:[address] [facility] Blood Venous blood specimen / Unknown Venipuncture / Unknown 01/16/2025 8:55 AM EDT 01/16/2025 8:55 AM EDT Leanna Solis MD LAB BLOOD ORDERABLES Final Resul t [facility] [address] [place] [address], [place] [phone] * Thyroxine free (01/16/2025 8:55 AM EDT) Free T4 1.10 0.70 - 1.80 ng/dL LAB CHEMISTRY METHOD 01/16/2025 1:[address] [facility] Blood Venous blood specimen / Unknown Venipuncture / Unknown 01/16/2025 8:55 AM EDT 01/16/2025 8:55 AM EDT us Leanna Solis MD LAB BLOOD ORDERABLES Final Resul t [facility] [address] [place] [address], [place] [phone] * (ABNORMAL) Lipid panel with reflex to direct LDL (08/11/2024 9:14 AM EDT) Cholesterol 178 0 - 200 mg/dL LAB CHEMISTRY METHOD 08/11/2024 1:[address] [facility] Triglycerides 93 0 - 150 mg/dL LAB CHEMISTRY METHOD 08/11/2024 1:22 PM [facility] HDL 49 >=40 mg/dL LAB CHEMISTRY METHOD 08/11/2024 1:[address] [facility] LDL Calculated 110(H) 0 - 100 mg/dL LAB CHEMISTRY METHOD 08/11/2024 1:22 PM [facility] VLDL Cholesterol Sandor 18.6 mg/dL LAB CHEMISTRY METHOD 08/11/2024 1:[address] [facility] Non HDL Chol. (LDL+VLDL) 129 <145 mg/dL LAB CHEMISTRY METHOD 08/11/2024 1:22 PM [facility] Chol/HDL Ratio 3.6 0.0 - 4.4 LAB CHEMISTRY METHOD 08/11/2024 1:22 PM [facility] Blood Venous blood specimen / Unknown Venipuncture / Unknown 08/11/2024 9:14 AM EDT 08/11/2024 9:14 AM EDT Sara SEGOVIA LAB BLOOD ORDERABLES Final Result [facility] [address] [place] [address], [place] [phone] * HIV Screening (07/16/2020) HIV Screening abstracted Historical Provider MD HEALTH MAINTENANCE Final Result * Hepatitis C Screening (07/16/2020) Hepatitis C Screening abstracted Historical Provider HEALTH MAINTENANCE Final Result * Pap smear (07/16/2020) 07/16/2020 Narrative HISTORICAL TESTING LAB RESULTING AGENCY - 07/18/2020 4:25 PM EDT [id number] THINPREP PAP, IMAGED: NEGATIVE FOR SQUAMOUS INTRAEPITHELIAL LESION AND MALIGNANCY . CLUE CELLS ARE PRESENT. SNEHAL RUVALCABA , ALEJANDRA(ASCP) (CASE ELECTRONICALLY SIGNED 07 18 2020) RESULT OF APTIMA HIGH RISK HPV ASSAY: HIGH RISK HPV: NEGATIVE (SEROTYPES 16,18,31,33,35,39,45,51,52,56,58,59,66,68) COMPLETED ON 2020-07-18 ADEQUACY: SATISFACTORY ENDOCERVICAL/TRANSFORMATION ZONE COMPONENT PRESENT. SOURCE: THINPREP PAP HPV ANY DX: REFLEX 16 AND 18, CERVICAL, IMAGED CLINICAL INFORMATION: HPV ANY DIAGNOSIS. HORMONES, PAP HX NEG, NO LMP RECORDED [Z12.4, Z01.419] us Mayra Yi CNM LAB CYTOLOGY ORDERABLES Final Result HISTORICAL TESTING LAB RESULTING AGENCY from Last 3 Months or Most Recently Relevant to Health Maintenance Insurance [facility] Care Teams Sanitarian Relationship Specialty Start Date End Date Nancy Lr MD [address] [place] [address] MIGUEL MCGINNIS [id number] PCP - General Internal Medicine 06/05/20
== END 2025-03-21 10:13 | disposition home or self-care (01) ==
LOC: HO.HPHYS 09:42
PROVIDERS: PCP Physician Assistant Medical; Visit Provider Physician Assistant
DX: M54.16 Radiculopathy, lumbar region (principal); M47.816 Spondylosis without myelopathy or radiculopathy, lumbar region
CPT/HCPCS: 99204